=== PATIENT | female | born 1980 | race Caucasian/White ===

== ENCOUNTER 2022-01-02 11:00 | Outpatient (CLI) | payer BC, SELFPAY ==
--- NOTE | 2022-01-02 11:00 | CRLHL7_ITS ---
For Patients: As a result of the Century Cures Act, medical imaging exams and procedure reports are released immediately into your electronic medical record. You may view this report before your referring provider. If you have questions, please contact your health care provider. INDICATION: Follow-up groin nodes and new palpable thigh bulge. TECHNIQUE: Ultrasound of the right groin and anterior right thigh at the site of palpable bulge. COMPARISON: Ultrasound 10/05/2021. FINDINGS/IMPRESSION: Interval decrease in size of the right inguinal lymph nodes which are now normal in size and morphology. No abnormality at the site of palpable thigh bulge. Information Resource Consultant is imaging rectus femoris muscle. No mass or fluid collection. If continued clinical concern consider MRI for further evaluation. Dictated by Jonathan Borja MD @ 01/02/2022 12:41:33 PM (Electronically Signed)
== END 2022-01-02 11:01 | disposition home or self-care (01) ==
LOC: US 11:01
PROVIDERS: PCP Physician Assistant Medical; Visit Provider Physician Assistant Medical
DX: R59.9 Enlarged lymph nodes, unspecified (principal)
CPT/HCPCS: 76882

== ENCOUNTER 2022-07-17 10:06 | Outpatient (CLI) | payer BC, SELFPAY ==
--- NOTE | 2022-07-17 10:15 | CRLHL7_ITS ---
For Patients: As a result of the Century Cures Act, medical imaging exams and procedure reports are released immediately into your electronic medical record. You may view this report before your referring provider. If you have questions, please contact your health care provider. BILATERAL SCREENING MAMMOGRAM WITH COMPUTER-AIDED DETECTION AND TOMOSYNTHESIS TECHNIQUE: CC and MLO views were obtained. These mammographic images have been obtained using full-field digital technique. These mammographic images were interpreted with the benefit of computer-aided detection. Breast Tomosynthesis was used in this interpretation. COMPARISON FILM: 05/04/21, 12/03/14. FINDINGS: The breasts are extremely dense, which lowers the sensitivity of mammography IMPRESSION: There is no radiographic evidence for malignancy. ASSESSMENT: BI-RADS Category 1: Negative RECOMMENDATION: Routine screening mammogram in 1 year. A lay language report of this examination will be provided to the patient. Otf Monteiro M.D. Diagnostic Radiologist [email or web address] SHANT/Dictated by: Otf Monteiro MD @ 07/17/2022 11:53:00 AM (Electronically Signed)
== END 2022-07-17 10:07 | disposition home or self-care (01) ==
LOC: MAMMO 10:07
PROVIDERS: PCP Physician Assistant Medical; Visit Provider Physician Assistant Medical
DX: Z12.31 Encounter for screening mammogram for malignant neoplasm of breast (principal); R92.2 Inconclusive mammogram
CPT/HCPCS: 77063; 77067

== ENCOUNTER 2023-07-30 16:51 | Outpatient (CLI) | payer OTHER, SELFPAY ==
--- NOTE | 2023-07-30 17:40 | MM_ITS ---
Patient: DAVE RUBI Facility:?[facility] Patient ID:?[id number] Site Patient ID:?[id number]. Site :?[id number] Study:?XRay-Breast Bilateral 3D W/CAD-07/30/2023 5:37:08 PM Ordering Physician:Jae Mcrae Final Report: BILATERAL SCREENING MAMMOGRAM WITH COMPUTER-AIDED DETECTION AND TOMOSYNTHESIS TECHNIQUE: CC and MLO views were obtained. These mammographic images have been obtained using full-field digital technique. These mammographic images were interpreted with the benefit of computer-aided detection. Breast Tomosynthesis was used in this interpretation. COMPARISON FILM: 07/17/22,05/04/21, 12/03/14. FINDINGS: The breasts are extremely dense, which lowers the sensitivity of mammography IMPRESSION: There is no radiographic evidence for malignancy. ASSESSMENT: BI-RADS Category 1: Negative RECOMMENDATION: Routine screening mammogram in 1 year. A lay language report of this examination will be provided to the patient. Otf Monteiro M.D. Diagnostic Radiologist [email or web address] KIKI/[email or web address] Transcribed: 12:11 [email or web address] hardy/Dictated by: Otf Monteiro MD @ 08/12/2023 10:08:00 AM Signed by:?Otf Monteiro MD @08/12/2023 12:12:21 PM (Electronic Signature)
== END 2023-07-30 16:52 | disposition home or self-care (01) ==
LOC: MAMMO 16:52
PROVIDERS: PCP Physician Assistant Medical; Visit Provider Physician Assistant Medical
DX: Z12.31 Encounter for screening mammogram for malignant neoplasm of breast (principal); R92.2 Inconclusive mammogram
CPT/HCPCS: 77063; 77067

== ENCOUNTER 2023-08-26 10:12 | Outpatient (CLI) | payer OTHER, SELFPAY | END 2023-08-26 10:13 | disposition home or self-care (01) | PROVIDERS: PCP Physician Assistant Medical; Visit Provider Physician Assistant Medical | DX: Z13.220 Encounter for screening for lipoid disorders (principal); Z13.228 Encounter for screening for other metabolic disorders; Z13.29 Encounter for screening for other suspected endocrine disorder | CPT/HCPCS: 80053; 80061; 84443 ==

== ENCOUNTER 2024-08-21 13:55 | Outpatient (CLI) | payer OTHER, SELFPAY ==
--- NOTE | 2024-08-21 14:00 | CRLHL7_ITS ---
For Patients: As a result of the Century Cures Act, medical imaging exams and procedure reports are released immediately into your electronic medical record. You may view this report before your referring provider. If you have questions, please contact your health care provider. INDICATION: BILATERAL SCREENING MAMMOGRAM, ASYMPTOMATIC 44 Y/O FEMALE COMPARISON: 07/30/23, 07/17/22, 05/04/21 TECHNIQUE: CC and MLO views were obtained. These mammographic images have been obtained using full-field digital technique. These mammographic images were interpreted with the benefit of computer aided detection and tomosynthesis. BREAST COMPOSITION: The breasts are extremely dense, which lowers the sensitivity of mammography. FINDINGS: No suspicious findings. ASSESSMENT: BI-RADS 1 Negative RECOMMENDATION: Annual screening mammogram. A lay language report of this examination will be provided to the patient. Dictated by: Otf Monteiro MD @ 08/25/2024 12:08:01 (Electronically Signed)
== END 2024-08-21 13:56 | disposition home or self-care (01) ==
LOC: MAMMO 13:55
PROVIDERS: PCP Physician Assistant Medical; Visit Provider Physician Assistant Medical
DX: Z12.31 Encounter for screening mammogram for malignant neoplasm of breast (principal); R92.343 Mammographic extreme density, bilateral breasts
CPT/HCPCS: 77063; 77067

== ENCOUNTER 2025-02-24 08:03 | Outpatient (CLI) | payer OTHER, SELFPAY | END 2025-02-24 08:04 | disposition home or self-care (01) | LOC: NFLDREF 02-27 16:01 | PROVIDERS: PCP Physician Assistant Medical; Referring Provider Physician Assistant Medical; Visit Provider Physician Assistant Medical | DX: E78.5 Hyperlipidemia, unspecified (principal); Z00.00 Encounter for general adult medical examination without abnormal findings; B07.8 Other viral warts | CPT/HCPCS: 80053; 80061; 84443 ==

== ENCOUNTER 2025-03-29 07:36 | Outpatient (CLI) | payer OTHER, SELFPAY | END 2025-03-29 07:37 | disposition home or self-care (01) | LOC: NFLDREF 04-02 10:06 | PROVIDERS: PCP Physician Assistant Medical; Referring Provider Physician Assistant Medical; Visit Provider Physician Assistant Medical | DX: R94.4 Abnormal results of kidney function studies (principal) | CPT/HCPCS: 82565; 82610 ==